=== PATIENT | male | born 1965 | race Caucasian/White ===

== ENCOUNTER 2019-02-22 15:00 | Day surgery (SDC) | payer MEDICAID ==
[~2019-02-22] VITALS: Ht 170.2 cm; Wt 78.2 kg
[~2019-02-22 15:00] MED LIST: DENIES
[2019-02-22] MEDS ORDERED: LACTATED RINGERS 1,000 ML IV SCH ×2 (15:27→21:00)
[2019-02-22] MEDS ORDERED: IBUP-1223 PO (15:28)
[2019-02-22] MEDS ORDERED: ACETAMINOPHEN 500 MG TABLET PO STA (15:30)
[2019-02-22] MEDS ORDERED: GABAPENTIN 300 MG CAPSULE PO STA (15:30)
[2019-02-22] MEDS ORDERED: EPINEPHRINE 1 MG/ML, 1ML ONE (15:44)
[2019-02-22] MEDS ORDERED: BUPIVACAINE/PF 0.5% ONE (15:44)
[2019-02-22] MEDS ORDERED: HALOPERIDOL 5 MG/ML IV PRN (16:00)
[2019-02-22] MEDS ORDERED: OXYcodone 5 MG/5 ML ORAL.SOL UDC PO PRN (16:00)
[2019-02-22] MEDS ORDERED: LABETALOL 5MG/ML, 20ML IV PRN (16:00)
[2019-02-22] MEDS ORDERED: hydrALAzine 20 MG/ML, 1ML IV PRN (16:00)
[2019-02-22] MEDS ORDERED: MEPERIDINE/PF 25MG/ML,1ML IVPush PRN (16:00)
[2019-02-22] MEDS ORDERED: PROMETHAZINE 25 MG/ML, 1ML IV PRN (16:00)
[2019-02-22] MEDS ORDERED: FENTANYL PF 100 MCG/2ML IV PRN (16:00)
[2019-02-22] MEDS ORDERED: HYDROmorphone 2 MG/ML, 1ML IVPush PRN (16:00)
[2019-02-22] MEDS ORDERED: FENTANYL PF 250 MCG/5ML ONE (17:07)
[2019-02-22] MEDS ORDERED: MIDAZOLAM 1 MG/ML, 2ML ONE (17:30)
[2019-02-22] MEDS ORDERED: ONDANSETRON 2MG/ML, 2ML ONE (17:32)
[2019-02-22] MEDS ORDERED: PROPOFOL 10 MG/ML, 20ML ONE (17:32)
[2019-02-22] MEDS ORDERED: NEOSTIGMINE 1 MG/ML, 10ML ONE (17:32)
[2019-02-22] MEDS ORDERED: DEXAMETHASONE 4 MG/ML, 1ML ONE (17:32)
[2019-02-22] MEDS ORDERED: GLYCOPYRROLATE 0.2MG/1ML, 5ML ONE (17:32)
[2019-02-22] MEDS ORDERED: ROCURONIUM 10 MG/ML,10ML ONE (17:32)
[2019-02-22] MEDS ORDERED: CEFAZOLIN 1,000 MG ONE (17:32)
[2019-02-22] MEDS ORDERED: SUCCINYLCHOLINE 20 MG/ML, 10ML ONE (17:32)
[2019-02-22] MEDS ORDERED: BUPIVACAINE/PF-EPI 0.5% 1:200K INFIL ONE (18:00)
[2019-02-22] MEDS ORDERED: OXYcodone 5 MG/5 ML ORAL.SOL UDC ONE (19:34)
[2019-02-22 20:43] VITALS: BP 153/90
[2019-02-22] MEDS ORDERED: ONDANSETRON 2MG/ML, 2ML IVPush PRN (21:00)
[2019-02-22] MEDS ORDERED: OXYcodone/APAP 5/325MG TABLET PO PRN (21:00)
[2019-02-22] MEDS ORDERED: MORPHINE SULFATE 4 MG/ML, 1ML IVPush PRN (21:00)
[2019-02-22] MEDS ORDERED: OXYC-302 PO (21:04)
== END 2019-02-22 22:38 | disposition home or self-care (01) ==
LOC: OR 15:00 → 4NE 20:00 → OR 20:22 → UNDOADMOB 20:24 → 4NE 20:24 → UNDODISOB 22:38 → OR 22:38
PROVIDERS: ATTEND Surgery
DX: K40.91 Unilateral inguinal hernia, without obstruction or gangrene, recurrent (principal); K66.0 Peritoneal adhesions (postprocedural) (postinfection); Z79.1 Long term (current) use of non-steroidal anti-inflammatories (NSAID); Z87.891 Personal history of nicotine dependence; Z98.890 Other specified postprocedural states
CPT/HCPCS: 00840; 49651; C1781; J0171; J0330; J0690; J1100; J2250; J2405; J2704; J2710; J3010; J7120; S2900; G0378